=== PATIENT | male | born 1995 ===

== ENCOUNTER 2018-01-06 07:07 | Emergency (ER) | payer OTHER ==
[2018-01-06 07:07] VITALS: BMI 20.2
[2018-01-06 07:15] VITALS: RESP 18; O2SAT 95
[2018-01-06 07:50] VITALS: BP 118/74; PULSE 93; TEMP 97.6
--- NOTE | 2018-01-06 07:56 | C.PDOC ---
History Of Present Illness 22 year old male presents to the emergency department requesting heroin detox, heroin used by inhalation. Patient denies drug abuse or suicidal and homicidal ideation. States his last dose was 2 days ago. Patient reports he has never been to a detox program before. Time Seen by Provider: 01/06/18 07:21 Chief Complaint (Nursing): Substance Abuse History Per: Patient, Family (mother) History/Exam Limitations: no limitations Onset/Duration Of Symptoms: Other (many months) Past Medical History Reviewed: Historical Data, Nursing Documentation, Vital Signs Vital Signs: Last Vital Signs Temp 97.6 F 01/06/18 07:49 Pulse 93 H 01/06/18 07:49 Resp 18 01/06/18 07:49 BP 118/74 01/06/18 07:49 Pulse Ox 95 01/06/18 08:14 - Medical History PMH: Asthma, Seizures (2 EPISODES) Denies: Diabetes, Hepatitis, HIV, HTN, Chronic Kidney Disease, Sexually Transmitted Disease Family History: States: No Known Family Hx - Social History Hx Tobacco Use: Yes Hx Alcohol Use: No Hx Substance Use: Yes - Immunization History Hx Tetanus Toxoid Vaccination: No Hx Influenza Vaccination: No Hx Pneumococcal Vaccination: No Review Of Systems Except As Marked, All Systems Reviewed And Found Negative. Constitutional: Negative for: Fever, Chills Cardiovascular: Negative for: Chest Pain Respiratory: Negative for: Shortness of Breath Gastrointestinal: Negative for: Nausea, Vomiting Neurological: Negative for: Weakness, Numbness Psych: Negative for: Suicidal ideation, Other (Homicidal ideation) Physical Exam - Physical Exam Appears: Well, Non-toxic, No Acute Distress Skin: Normal Color, Warm Head: Atraumatic, Normacephalic Eye(s): bilateral: Normal Inspection Oral Mucosa: Moist Neck: Supple Gastrointestinal/Abdominal: Normal Exam, Soft, No Tenderness Back: Normal Inspection Extremity: Normal ROM Neurological/Psych: Oriented x3, Normal Speech Gait: Steady ED Course And Treatment O2 Sat by Pulse Oximetry: 95 (RA) Pulse Ox Interpretation: Normal Medical Decision Making Medical Decision Making: Patient was given a list of all available detox program provided by [facility]. Disposition Counseled Patient/Family Regarding: Diagnosis, Need For Followup - Disposition Referrals: [facility] [Outside] [facility] [Outside] Disposition: HOME/ ROUTINE Disposition Time: 07:54 Condition: GOOD Additional Instructions: PLEASE CALL FOR DETOX PROGRAM AVAILABILITY. LIST OF ALL LOCAL NUMBERS PROVIDED. IF ANY NEW CONCERNING SYMPTOMS DEVELOP RETURN TO ED. Instructions: Drug Abuse and Drug Addiction (DC) Forms: [facility] (Urdu), General Discharge Instructions - Clinical Impression Clinical Impression: Drug abuse - PA / PAGEANT DIRECTOR / Resident Statement MD/DO has reviewed & agrees with the documentation as recorded. - Scribe Statement The provider has reviewed the documentation as recorded by the Scribe Savannah Doe All medical record entries made by the Gregorioibdusty were at my direction and personally dictated by me. I have reviewed the chart and agree that the record accurately reflects my personal performance of the history, physical exam, medical decision making, and the department course for this patient. I have also personally directed, reviewed, and agree with the discharge instructions and disposition.
== END 2018-01-06 08:00 | disposition home or self-care (01) ==
LOC: C.ER 07:07
DX: F11.10 Opioid abuse, uncomplicated (principal)

== ENCOUNTER 2018-01-08 10:03 | Inpatient (IN) | payer OTHER ==
[2018-01-08 11:01] VITALS: BMI 17.5
--- NOTE | 2018-01-08 11:01 | C.PDOC ---
History Of Present Illness 22 y/o male presents to the ER requesting detox from heroin. Patient states that he snorts heroin and he last used heroin yesterday morning. Contrary to triage, patient denies having suicidal ideation, homicidal ideation, hallucinations, and active physical complaints. Time Seen by Provider: 01/08/18 10:53 Chief Complaint (Nursing): Psychiatric Evaluation History Per: Patient History/Exam Limitations: no limitations Past Medical History Reviewed: Historical Data, Nursing Documentation, Vital Signs Vital Signs: Last Vital Signs Temp 98.8 F 01/08/18 10:10 Pulse 75 01/08/18 10:10 Resp 20 01/08/18 10:10 BP 105/66 01/08/18 10:10 Pulse Ox 100 01/08/18 11:50 - Medical History PMH: Asthma, Seizures (2 EPISODES) Denies: Diabetes, Hepatitis, HIV, HTN, Chronic Kidney Disease, Sexually Transmitted Disease Surgical History: No Surg Hx Family History: States: No Known Family Hx - Social History Hx Tobacco Use: Yes Hx Alcohol Use: No Hx Substance Use: Yes - Immunization History Hx Tetanus Toxoid Vaccination: No Hx Influenza Vaccination: No Hx Pneumococcal Vaccination: No Review Of Systems Except As Marked, All Systems Reviewed And Found Negative. Physical Exam - Physical Exam Appears: No Acute Distress Skin: Normal Color, Warm, Dry Head: Atraumatic, Normacephalic Eye(s): bilateral: Normal Inspection Nose: Normal Oral Mucosa: Moist Neck: Supple Chest: Symmetrical Cardiovascular: Rhythm Regular Respiratory: Normal Breath Sounds, No Rales, No Rhonchi, No Wheezing Gastrointestinal/Abdominal: Normal Exam, Soft, No Tenderness, No Guarding, No Rebound Neurological/Psych: Oriented x3, Normal Speech ED Course And Treatment - Laboratory Results Result Diagrams: 01/08/18 11:05 01/08/18 11:05 O2 Sat by Pulse Oximetry: 100 (RA) Pulse Ox Interpretation: Normal Medical Decision Making Medical Decision Making: Assessment: Heroin Detox Plan: --Labs --UA --Crisis Evaluation Disposition Discussed With : Amina Garcia Doctor Will See Patient In The: Hospital Counseled Patient/Family Regarding: Studies Performed, Diagnosis - Disposition Disposition: HOSPITALIZED Disposition Time: 14:15 Condition: FAIR Forms: [employer] [facility] ([place]es) - Clinical Impression Clinical Impression: Substance abuse - Scribe Statement The provider has reviewed the documentation as recorded by the Scribe Heydi Dickerson Provider Attestation: All medical record entries made by the Tim were at my direction and personally dictated by me. I have reviewed the chart and agree that the record accurately reflects my personal performance of the history, physical exam, medical decision making, and the department course for this patient. I have also personally directed, reviewed, and agree with the discharge instructions and disposition.
[2018-01-08 11:10] LABS: HEMOGLOBIN 16.9 g/dL (12.0-18.0); MEAN CELL VOLUME 88.9 fL (80.0-94.0); MEAN CORPUSCULAR HEMOGLOBIN 31.5 pg (27.0-31.0); MEAN CORPUSCULAR HGB CONC 35.4 g/dL (33.0-37.0); MEAN PLATELET VOLUME 8.6 fL (7.2-11.7); RBC 5.36 Mil/uL (4.40-5.90); RED CELL DISTRIBUTION WIDTH 13.1 % (11.5-14.5); WHITE BLOOD COUNT 6.9 K/uL (4.8-10.8)
[2018-01-08 11:17] LABS: SQUAMOUS EPITHIAL < 1 /hpf (0-5); URINE BILIRUBIN NEGATIVE (NEGATIVE); URINE BLOOD NEGATIVE (NEGATIVE); URINE CLARITY Clear (Clear); URINE COLOR Yellow (YELLOW); URINE GLUCOSE (UA) NORMAL (Normal); URINE LEUKOCYTE ESTERASE NEG Leu/uL (Negative); URINE PROTEIN NEGATIVE (NEGATIVE); URINE UROBILINOGEN NORMAL mg/dL (0.2-1.0)
[2018-01-08 11:38] LABS: ALB/GLOB RATIO 1.5 (1.0-2.1); ALBUMIN 5.4 g/dL (3.5-5.0); ALT/SGPT 35 U/L (21-72); AST/SGOT 32 U/L (17-59); BLOOD UREA NITROGEN 11 mg/dL (9-20); CALCIUM 10.2 mg/dl (8.6-10.4); GFR NON-AFRICAN AMERICAN > 60
[2018-01-08 11:50] LABS: BARBITURATES, UR NEGATIVE (NEGATIVE); BENZODIAZEPINES, UR NEGATIVE (NEGATIVE); PHENCYCLIDINE, UR NEGATIVE (NEGATIVE)
[2018-01-08 12:23] LABS: OPIATES, UR POSITIVE (NEGATIVE)
--- NOTE | 2018-01-08 19:07 | PCM.BM ---
<Nino Nesbitt - Last Filed: 01/08/18 19:06> Treatment Plan Problems - Problems identified on initial assessmt Depression Date Initiated: 01/08/18 Time Initiated: 15:00 Assessment reference: NA Status: Active Opiates Abuse Date Initiated: 01/08/18 Time Initiated: 15:00 Assessment reference: NA Status: Active Treatment assets and liabiliti Patient Assests: good support system, negotiates basic needs Patient Liabilities: substance abuse (Heroin, Cocaine) - Milieu Protocol Maintain good personal hygiene: daily Encourage regular showers, daily Remind patient to perform daily oral care, every shift Assist patient to perform ADL's Conduct patient checks and document Observation sheet: Q15 minutes Maintain personal safety: every shift Educate patient to report safety concerns to staff, every shift Monitor environment for contraband/sharps Medication safety: Monitor for expected outcome, potential side effects: every shift, Assess barriers to learning: every shift, Assess readiness for medication education: every shift <Amina Garcia - Last Filed: 01/09/18 10:56> - Diagnosis (1) Opioid use disorder, severe, dependence Status: Acute Interventions: 01/09/18 10:56 * Assess 7x/week regarding severity of withdrawal * Educate regarding risks, benefits, side effects and alternatives of medications * Use Motivational Interviewing for abstinence * Use CBT for relapse prevention * Medication management for withdrawal symptoms * Encourage medication assisted treatment * (2) Depressive disorder Status: Acute Interventions: 01/09/18 10:56 * Assess/adjust medications daily and /or as needed * See patient on an individual basis 7x/week to assess symptoms of depression * Monitor for side effects & effectiveness of medications * <Latonia Anne - Last Filed: 01/09/18 16:18> Family Contact Family involvement: Patient does not wish Family/SO involvement Family contact: Patient declines to allow family contact at present - Goals for Treatment Patient goals for treatment: "I want to attend an outpatient program." Discharge/Continuing Care - Education Needs Education Needs: Patient Medication, Patient Diagnosis/Disease Process, Patient Coping Skills, Patient Placement options, Patient Community resources - Discharge Discharge Criteria: Free of Suicidal thoughts, Ability to care for self, No longer exhibiting s/s of withdrawal, Reduction of target symptoms Discharge to:: Home, With Family - Treatment Team Participation Discussed with Family/SO: No Was Patient/Family/SO present at Treatment Team Meeting: Yes
[2018-01-08] MEDS ORDERED: Albuterol HFA 90 mcg/actuation (8 g) IH PRN (22:52)
[2018-01-09 06:47] VITALS: BP 105/67; PULSE 67; RESP 20; TEMP 98.4; O2SAT 99
--- NOTE | 2018-01-09 10:42 | PCM.PSYCH ---
Initial Psychiatric Evaluation - Initial Psychiatric Evaluation Type of Admission: Voluntary Legal Status: Capacity History of Present Illness and Precipitating Events: This is a 22 year old single HM, who came to the ED, with depressed mood, heroin abuse and suicidal ideation. Pt denies any past history of any inpatient psychiatric hospitalizations and denies any history of follow up with any psychiatrist. As per the patient he has been sniffing and injecting 15-30 bags of heroin daily along with some cocaine. As per the patient he injected almost 30 bags of heroin yesterday, became increasingly depressed and developed suicidal ideation so came to the ED to get help. Patient reports of depressed mood at times feelings of hopelessness and helplessness and poor sleep and poor appetite. Patient reports of withdrawal symptoms including abdominal cramps, anxiety, headaches and sweating. He denies any auditory or visual hallucinations or any psychotic symptoms. Past medical history None reported Current Medications: Active Medications Generic Name Dose Route Start Last Admin Trade Name Freq PRN Reason Stop Dose Admin Albuterol 2 puff 01/08/18 22:52 Ventolin Hfa 90 Mcg/Actuation (8 G) IH RQ6 PRN Shortness of Breath Hydroxyzine HCl 25 mg 01/08/18 22:53 01/09/18 10:22 Atarax PO 25 mg Q6 PRN Administration Agitation Trazodone HCl 50 mg 01/08/18 23:00 01/08/18 23:08 Desyrel PO Not Given HS ALIYA Past Psychiatric History - Past Psychiatric History Previous Treatment History: None Pertinent Medical Hx (Current Medical&Sleep Prob, Allergies): Allergies Allergy/AdvReac Type Severity Reaction Status Date / Time No Known Allergies Allergy Verified 01/06/18 11:02 Albuterol HFA [Ventolin HFA 90 mcg/actuation (8 g)] 2 puff IH [id number] PRN 01/20/15 Review of Systems - Review of Systems All systems: reviewed and no additional remarkable complaints except - Psychiatric Psychiatric: Anxiety, Irritability, Suicidal Ideation Mental Status Examination - Personal Presentation Personal Presentation: Looks stated age - Affect Affect: Constricted - Motor Activity Motor Activity: Calm - Reliability in Providing Information Reliability in Providing Information: Good - Speech Speech: Organized - Mood Mood: Depressed, Anxious - Formal Thought Process Formal Thought Process: No Impairment - Obsessions/Compulsions Obsessions: No Compulsions: No - Cognitive Functions Orientation: Person, Place, Situation, Time Sensorium: Alert Attention/Concentration: Attentive Abstract Thinking: [place] Estimate of Intelligence: Below average Judgement: Imparied, as evidence by: Poor judgement, Imparied, as evidence by: Lack of insight into illness - Risk Risk: Suicidal, Withdrawal, Diminished functioning - Limitations Limitations: Living alone DSM 5 DX - DSM 5 DSM 5 Diagnosis: Major depressive disorder Opioid use severe Opioid withdrawal - Recommended/Plan of Treatment Treatment Recommendations and Plan of Treatment: Major depressive disorder Opioid use severe Opioid withdrawal Taper with methadone Gabapentin for augmentation if needed As needed medications All risks, benefits and alternatives of the meds discussed, and the pt agreed and understood. Attend groups and activities Supportive therapy and psychoeducation MD for abstinence CBT for relapse prevention Encourage MAT Refer to rehab or IOP, and self-help groups Smoking cessation with MD Nicotine patch if needed
[2018-01-09] MEDS ORDERED: Aluminum Hydroxide/Magnesium Hydroxide Susp (30 mL) PO PRN (10:57)
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
== END 2018-01-09 17:32 | disposition left against medical advice (07) | DRG 426 ==
LOC: C.ER 10:03 → C.5E 14:13
PROVIDERS: ADMIT Psychiatry & Neurology Psychiatry; ATTEND Psychiatry & Neurology Psychiatry
PROC: GZ3ZZZZ Medication Management (ICD-10-PCS; principal; 2018-01-08)
PROC: GZHZZZZ Group Psychotherapy (ICD-10-PCS; 2018-01-08)
PROC: HZ81ZZZ Medication Management for Substance Abuse Treatment, Methadone Maintenance (ICD-10-PCS; 2018-01-08)
PROC: GZ56ZZZ Individual Psychotherapy, Supportive (ICD-10-PCS; 2018-01-08)
DX: F32.9 Major depressive disorder, single episode, unspecified (principal); F11.23 Opioid dependence with withdrawal; R45.851 Suicidal ideations; F17.210 Nicotine dependence, cigarettes, uncomplicated

== ENCOUNTER 2018-03-12 22:14 | Emergency (ER) | payer SELFPAY ==
[2018-03-12 22:15] VITALS: BMI 17.5
[2018-03-12] MEDS ORDERED: Sodium Chloride 0.9% 1,000 ML IV ONE ×2 (23:05)
--- NOTE | 2018-03-12 23:22 | C.PDOC ---
History Of Present Illness 22 year old male presents to the ER with a complaint of diarrhea, nausea, and vomiting that began tonight. Denies fever or chills. Chief Complaint (Nursing): Abdominal Pain History Per: Patient History/Exam Limitations: no limitations Onset/Duration Of Symptoms: Hrs Current Symptoms Are (Timing): Still Present Associated Symptoms: Nausea, Vomiting, Diarrhea. denies: Fever, Chills Exacerbating Factors: None Alleviating Factors: None Recent travel outside of the [place]: No Past Medical History Reviewed: Historical Data, Nursing Documentation, Vital Signs Vital Signs: Last Vital Signs Temp 97.7 F 03/12/18 22:48 Pulse 77 03/12/18 22:48 Resp 20 03/12/18 22:48 BP 120/82 03/12/18 22:48 Pulse Ox 98 03/12/18 22:48 - Medical History PMH: Asthma, Seizures (2 EPISODES) Denies: Diabetes, Hepatitis, HIV, HTN, Chronic Kidney Disease, Sexually Transmitted Disease - [facility] GROUP PSYCHOTHERAPY (01/08/18) INDIVIDUAL PSYCHOTHERAPY, SUPPORTIVE (01/08/18) MEDICATION MANAGEMENT (01/08/18) MEDS MGMT FOR SUBSTANCE ABUSE TREATMENT, METHADONE MAINT (01/08/18) Family History: States: Unknown Family Hx - Social History Hx Tobacco Use: Yes Hx Alcohol Use: No Hx Substance Use: Yes - Immunization History Hx Tetanus Toxoid Vaccination: No Hx Influenza Vaccination: No Hx Pneumococcal Vaccination: No Review Of Systems Constitutional: Negative for: Fever, Chills Cardiovascular: Negative for: Chest Pain, Palpitations Respiratory: Negative for: Cough, Shortness of Breath Gastrointestinal: Positive for: Nausea, Vomiting, Diarrhea Genitourinary: Negative for: Dysuria, Hematuria Neurological: Negative for: Weakness, Numbness Physical Exam - Physical Exam Appears: Non-toxic Skin: Normal Color, Warm, Dry Head: Atraumatic, Normacephalic Eye(s): bilateral: Normal Inspection Oral Mucosa: Moist Neck: Normal, Supple Chest: Symmetrical, No Tenderness Cardiovascular: Rhythm Regular Respiratory: Normal Breath Sounds, No Rales, No Rhonchi, No Wheezing Gastrointestinal/Abdominal: Bowel Sounds (Hyperactive), Soft, No Tenderness Back: No CVA Tenderness Neurological/Psych: Oriented x3, Normal Speech ED Course And Treatment - Laboratory Results Result Diagrams: 03/12/18 23:59 03/12/18 23:59 O2 Sat by Pulse Oximetry: 98 (Room air) Pulse Ox Interpretation: Normal Progress Note: Blood work and urinalysis ordered. IV fluids, zofran, and bentyl administered. Patient refuses CT, will sign out AMA. Against Medical Advice - AMA Patient Left Against Medical Advice: The patient declines admission to the hospital and wishes to leave the Emergency Department. This action is against my medical advice. This decision was made with informed refusal. The patient was told that admission to the hospital is necessary. Explanation of the reasons why were discussed. The risks of leaving were explained to the patient and include, but are not limited to, worsening of known or currently unknown conditions, permanent disability and from undiagnosed or untreated conditions. The patient has the capacity to make this informed decision and understands my explanation of the current medical problem and risks of leaving. The patient voluntarily accepts these risks and signed an AMA form documenting our conversation. The patient was given the opportunity to ask questions and reconsider. The patient was encouraged to return to the Emergency Department at any time for further care. Disposition Counseled Patient/Family Regarding: Diagnosis - Disposition Referrals: [facility] [Outside] Disposition: AGAINST MEDICAL ADVICE Disposition Time: 01:02 Condition: STABLE Instructions: Acute Abdomen (Belly Pain), Inflammatory Bowel Disease Forms: [facility] (Icelandic) - POA Present On Arrival: None - Clinical Impression Clinical Impression: Abdominal pain, Enteritis - Scribe Statement The provider has reviewed the documentation as recorded by the Scribdusty Wiseman All medical record entries made by the Scribdusty were at my direction and personally dictated by me. I have reviewed the chart and agree that the record accurately reflects my personal performance of the history, physical exam, medical decision making, and the department course for this patient. I have also personally directed, reviewed, and agree with the discharge instructions and disposition.
[2018-03-12] MEDS ORDERED: Sodium Chloride 0.9% 1,000 ML ONE (23:28)
[2018-03-13 00:08] LABS: BASO % 0.3 % (0.0-2.0); EOS # 0.3 K/uL (0.0-0.7); HEMOGLOBIN 16.4 g/dL (12.0-18.0); LYMPH % 6.5 % (20.0-40.0); MEAN CELL VOLUME 88.8 fL (80.0-94.0); MEAN CORPUSCULAR HEMOGLOBIN 31.5 pg (27.0-31.0); MEAN CORPUSCULAR HGB CONC 35.4 g/dL (33.0-37.0); MEAN PLATELET VOLUME 7.9 fL (7.2-11.7); MONO # 0.6 K/uL (0.0-0.8); MONO % 3.7 % (0.0-10.0); NEUT # 13.4 K/uL (1.8-7.0); NEUT % 87.5 % (50.0-75.0); PLATELET COUNT 302 K/uL (130-400); RED CELL DISTRIBUTION WIDTH 13.2 % (11.5-14.5); WHITE BLOOD COUNT 15.3 K/uL (4.8-10.8)
[2018-03-13] MEDS ORDERED: Iohexol 240 (50 ml) PO ONE (00:28)
[2018-03-13 00:40] LABS: ALB/GLOB RATIO 1.5 (1.0-2.1); ALT/SGPT 51 U/L (21-72); AST/SGOT 31 U/L (17-59); BLOOD UREA NITROGEN 20 mg/dL (9-20); CALCIUM 9.7 mg/dl (8.6-10.4); GFR NON-AFRICAN AMERICAN > 60; LIPASE 55 U/L (23-300)
[2018-03-13] MEDS ORDERED: Iohexol 350mg/ml 100 ML ONE (00:43)
[2018-03-13] MEDS ORDERED: Sodium Chloride 0.9% 1,000 ML ONE (00:44)
[2018-03-13] MEDS ORDERED: Iohexol 240 (50 ml) ONE (00:44)
[2018-03-13 01:08] LABS: BANDS 3 % (0-2); EOSINOPHIL 1 % (0-4); LYMPHOCYTE 7 % (20-40); MONOCYTE 6 % (0-10); NEUTROPHIL 83 % (50-75); PLATELET ESTIMATE NORMAL (NORMAL); TOTAL CELLS COUNTED 100
[2018-03-13 01:13] VITALS: BP 130/79; PULSE 89; RESP 19; TEMP 97.9; O2SAT 100
== END 2018-03-13 01:13 | disposition left against medical advice (07) ==
LOC: C.ER 22:14
DX: K52.9 Noninfective gastroenteritis and colitis, unspecified (principal); R10.9 Unspecified abdominal pain
CPT/HCPCS: 80053; 83690; 85025; 96374; 99284; J2405; J7030; Q9967